=== PATIENT | female | born 1960 | race Caucasian/White ===

== ENCOUNTER 2017-06-08 03:09 | Emergency (ER) | payer OTHER ==
[2017-06-08 03:22] VITALS: TEMP 98
--- NOTE | 2017-06-08 03:53 | C.PDOC ---
History Of Present Illness 57 yo female w/PMHx of chronic lower back pain, come in for evaluation of left sided lower back pain exacerbation for past 24hrs. Pt sts, pain is originate from Let lower back and radiating down to Left thigh. Pt admits, similar sx in past. Otherwise, pt denies fever, chills, known trauma or injury, abd. pain, N/V , UTI sx, hematuria, incontinence, saddle anesthesia, denies new weakness, sensory or vascular deficits to B/L LEs. Ambulate to ED for evaluation, not in nay apparent distress. Time Seen by Provider: 06/08/17 03:34 Chief Complaint (Nursing): Lower Extremity Problem/Injury History Per: Patient Onset/Duration Of Symptoms: Gradual Current Symptoms Are (Timing): Still Present Past Medical History Reviewed: Historical Data, Nursing Documentation, Vital Signs Vital Signs: Last Vital Signs Temp 98 F 06/08/17 03:16 Pulse 82 06/08/17 03:16 Resp 20 06/08/17 03:16 BP 127/80 06/08/17 03:16 Pulse Ox 98 06/08/17 03:54 - Medical History PMH: Asthma, Chronic Pain Surgical History: Cholecystectomy Family History: States: No Known Family Hx - Social History Hx Alcohol Use: Yes Hx Substance Use: No - Immunization History Hx Tetanus Toxoid Vaccination: Yes Hx Influenza Vaccination: Yes Hx Pneumococcal Vaccination: No Review Of Systems Except As Marked, All Systems Reviewed And Found Negative. Constitutional: Negative for: Fever, Chills ENT: Negative for: Throat Pain Cardiovascular: Negative for: Chest Pain, Palpitations Respiratory: Negative for: Cough, Shortness of Breath Gastrointestinal: Negative for: Nausea, Vomiting, Abdominal Pain Genitourinary: Negative for: Dysuria, Frequency, Incontinence Musculoskeletal: Positive for: Back Pain Neurological: Negative for: Weakness, Numbness Physical Exam - Physical Exam Appears: Well, Non-toxic, No Acute Distress Skin: Normal Color, Warm, No Rash Throat: No Erythema Neck: Supple Cardiovascular: Rhythm Regular Respiratory: No Stridor, No Wheezing Gastrointestinal/Abdominal: Soft, No Tenderness Back: No CVA Tenderness, Paraspinal Tenderness (Left sided lumbar extend down to Let gluteus and inner thigh) Extremity: Normal ROM, No Pedal Edema, No Deformity, No Swelling Neurological/Psych: Oriented x3, Normal Speech, Normal Motor, Normal Sensation, Normal Reflexes ED Course And Treatment O2 Sat by Pulse Oximetry: 98 Progress Note: On re-eavl, pt is afebrile, hemodynamicaly stable. NOn-toxic. Ambulatory in ED with stable gait. ABd: benign. Back: (-) CVA tenderness. Neurologicaly intact. UA results review and c/w UTI. Pt advised and ref. to F/ U with PMD in 2-3 days for re-eval. return to ED if any worsening or new changes. Disposition Counseled Patient/Family Regarding: Studies Performed, Diagnosis, Need For Followup, Rx Given - Disposition Referrals: Bonilla East DO [Staff Provider] - Disposition: HOME/ ROUTINE Disposition Time: 04:32 Condition: STABLE Additional Instructions: Encourage fluids Take medication as prescribed Follow up with PMD in 2-3 days for re-evaluation. Return to ED if any worsening or new changes. Prescriptions: Ibuprofen [Motrin Tab] 600 mg PO Q6 #14 tab Methocarbamol [Robaxin] 500 mg PO TID #14 tab Nitrofurantoin Macrocrystals [Macrobid] 1 cap PO BID #14 cap Instructions: Urinary Tract Infection in Women (ED), Lumbar Radiculopathy (ED) Forms: Nala ([place] Islander) Print Language: MONTENEGRIN - Clinical Impression Clinical Impression: UTI (urinary tract infection), Lumbar radiculopathy
[2017-06-08 04:22] LABS: RBC URINE 9 /hpf (0-3); URINE BACTERIA RARE (<OCC); URINE BILIRUBIN NEGATIVE (NEGATIVE); URINE BLOOD NEGATIVE (NEGATIVE); URINE COLOR Yellow (YELLOW); URINE GLUCOSE (UA) NORMAL (Normal); URINE KETONE NEGATIVE (NEGATIVE); URINE LEUKOCYTE ESTERASE 3+ Leu/uL (Negative); URINE PROTEIN NEGATIVE (NEGATIVE); URINE UROBILINOGEN NORMAL mg/dL (0.2-1.0); WBC URINE 35 /hpf (0-5)
[2017-06-08 04:43] VITALS: BP 120/80; PULSE 70; RESP 14; O2SAT 99
== END 2017-06-08 04:43 | disposition home or self-care (01) ==
LOC: C.ER 03:09
DX: M54.16 Radiculopathy, lumbar region (principal); N39.0 Urinary tract infection, site not specified
CPT/HCPCS: 81001; 96372; 99284; J1885